=== PATIENT | female | born 1945 | race Caucasian/White ===

== ENCOUNTER 2017-08-29 01:42 | Inpatient (IN) | payer MEDICARE, BC ==
[~2017-08-29] VITALS: Ht 167.6 cm; Wt 59.1 kg
[~2017-08-29 01:42] MED LIST: AMLO5TAB16 PO; ASPI-1071 PO; HYDR-4069 PO; LISI10TA4 PO
[2017-08-29] MEDS ORDERED: pantoprazole 40 MG vial IV ONE (02:00)
[2017-08-29] MEDS ORDERED: normal saline 1000ML IV soln IVB ONE (02:00)
[2017-08-29 02:23] LABS: BASOPHILS % (AUTO) 0 % (0-1); EOSINOPHILS # (AUTO) 0.1 X10'3 (0-0.9); EOSINOPHILS % (AUTO) 0.4 % (0-6); HEMATOCRIT 42.5 % (35.0-45.0); HEMOGLOBIN 14.6 g/dl (12.0-16.0); LYMPHOCYTES # (AUTO) 0.3 X10'3 (1.1-4.8); LYMPHOCYTES % (AUTO) 1.6 % (21-51); MEAN CORPUSCULAR HEMOGLOBIN 31.1 PG (27.0-31.0); MEAN CORPUSCULAR HGB CONC 34.4 % (33.0-36.5); MEAN CORPUSCULAR VOLUME 90.6 FL (78-98); MEAN PLATELET VOLUME 9.8 FL (7.4-10.4); MONOCYTES # (AUTO) 0.5 X10'3 (0-0.9); MONOCYTES % (AUTO) 2.4 % (2-12); NEUTROPHILS # (AUTO) 18.9 X10'3 (1.8-7.7); NEUTROPHILS % (AUTO) 95.6 % (42-75); PLATELET COUNT 199 X10'3 (140-440); RED BLOOD COUNT 4.69 X10'6 (4.20-5.60); RED CELL DISTRIBUTION WIDTH 13.1 % (11.5-14.5); WHITE BLOOD COUNT 19.8 X10'3 (4.5-11.0)
[2017-08-29 02:32] LABS: PARTIAL THROMBOPLASTIN TIME 26 SECONDS (22-32); PROTHROMBIN TIME 10.7 SECONDS (9.0-12.0)
[2017-08-29 02:37] LABS: ALANINE AMINOTRANSFERASE 21 U/L (12-78); ALBUMIN/GLOBULIN RATIO 1.3 (1.1-1.5); ALKALINE PHOSPHATASE 61 IU/L (46-116); ANION GAP 13 (8-16); ASPARTATE AMINO TRANSFERASE 27 U/L (10-37); BILIRUBIN,TOTAL 0.7 MG/DL (0.1-1.0); BLOOD UREA NITROGEN 46 MG/DL (7-18); BUN/CREATININE RATIO 23.5 (6.6-38.0); CALCIUM 10.3 MG/DL (8.5-10.1); CHLORIDE 105 MMOL/L (99-107); CREATININE 1.96 MG/DL (0.40-0.90); GLUCOSE 187 MG/DL (70-104); LIPASE 56 U/L (73-393); POTASSIUM 3.8 MMOL/L (3.5-5.1); SODIUM 142 MMOL/L (135-145); TOTAL CARBON DIOXIDE 23.6 MMOL/L (24-32); TOTAL PROTEIN 7.1 G/DL (6.4-8.2); eGFR 25 ML/MIN
[2017-08-29 02:44] LABS: CLARITY,URINE SLIGHTLY CLOUDY (Clear); GLUCOSE, URINE NEGATIVE (Neg); KETONES,URINE 15 mg/dl (Neg); LEUKOCYTE ESTERASE ,URINE NEGATIVE (Neg); OCCULT BLOOD,URINE NEGATIVE (Neg); PROTEIN,URINE 30 mg/dl (Neg)
[2017-08-29 02:46] LABS: PLATELET ESTIMATE NORMAL; TOTAL CELLS COUNTED 100
[2017-08-29 02:51] LABS: COLOR,URINE DARK YELLOW (Yellow); NITRITES, URINE NEGATIVE (Neg)
[2017-08-29 02:52] LABS: SQUAMOUS EPITHELIAL CELL,UR MODERATE /LPF (FEW); UA COLLECTION TYPE STRAIGHT CATH
[2017-08-29 02:53] LABS: CELLULAR CAST 0-4 /LPF (NEGATIVE); COARSE GRANULAR CAST 0-3 /LPF (NEGATIVE)
[2017-08-29 02:54] LABS: AMORPHOUS URATES 1+; BACTERIA,URINE FEW /HPF (Neg); RBC,URINE 0-2 /HPF (0-2)
[2017-08-29] MEDS ORDERED: CefTRIAXone/D5W-Rocephin 1gm 50 ML IV ONE (03:45)
[2017-08-29] MEDS ORDERED: MIRT15TA10 PO (05:48)
[2017-08-29] MEDS ORDERED: LISI40TA4 PO (05:48)
[2017-08-29] MEDS ORDERED: HYDR25TA4 PO (05:48)
[2017-08-29] MEDS ORDERED: POTA10TA19 PO (05:48)
[2017-08-29] MEDS ORDERED: OLAN5TAB5 PO ×2 (05:48)
[2017-08-29] MEDS ORDERED: AMLO2.5T2 PO (05:48)
[2017-08-29] MEDS ORDERED: HYDROmorphone inj. 0.5 MG/0.5 ML DISP.SYRIN IV PRN (06:10)
[2017-08-29] MEDS ORDERED: acetaminophen 325mg tablet PO PRN (06:10)
[2017-08-29] MEDS ORDERED: ondansetron/PF 4mg/2ml inj IV PRN (06:10)
[2017-08-29] MEDS ORDERED: glucagon, human recombinant 1mg kit SUBCUT PRN (06:15)
[2017-08-29] MEDS ORDERED: dextrose 50%-water 50ml dispensing syringe IV PRN ×2 (06:15)
[2017-08-29] MEDS ORDERED: insulin Lispro (HumaLOG) vial - multi-dose SQ SCH (06:15)
[2017-08-29] MEDS ORDERED: MESSAGE TO PHARMACY PO ONE (06:15)
[2017-08-29] MEDS ORDERED: dextrose ORAL solution 15 GM/59 ML bottle PO PRN ×2 (06:15)
[2017-08-29] MEDS ORDERED: metoprolol tartrate 1mg/ml inj IV PRN (06:20)
[2017-08-29] MEDS: normal saline 1000ml 1,000 ML IV SCH ×2 (06:29→16:52)
[2017-08-29] MEDS: piperacillin/tazo 3.375gm/50ml 50 ML IV SCH ×3 (07:11→22:34)
[2017-08-29 09:06] LABS: HEMOGLOBIN 14.6 g/dl (12.0-16.0); MEAN CORPUSCULAR HGB CONC 34.8 % (33.0-36.5); MEAN PLATELET VOLUME 10.2 FL (7.4-10.4); PLATELET COUNT 196 X10'3 (140-440); RED BLOOD COUNT 4.71 X10'6 (4.20-5.60); RED CELL DISTRIBUTION WIDTH 13.1 % (11.5-14.5); WHITE BLOOD COUNT 19.3 X10'3 (4.5-11.0)
[2017-08-29] MEDS ORDERED: OLANZapine 5mg rapidly disint. tablet PO PRN (15:15)
[2017-08-29] MEDS ORDERED: hydrALAZINE 20mg/ml inj. IV PRN (15:15)
[2017-08-29 16:58] VITALS: BP 162/77
[2017-08-29 20:00] VITALS: BP 181/78
[2017-08-29] MEDS: insulin glargine (Lantus) pen - multi-dose SQ SCH (21:00)
[2017-08-29] MEDS ORDERED: non-formulary drug (Mirtazapine 1 TAB) PO SCH (21:00)
[2017-08-29] MEDS: OLANZapine 2.5MG tablet PO SCH (21:15)
[2017-08-29] MEDS: amLODIPine 2.5mg tablet PO SCH (21:15)
[2017-08-29] MEDS: lactobacillus rhamnosus 10,000 MMU CELLS/CAPSULE PO SCH (21:15)
[2017-08-29] MEDS: mirtazapine 15mg tablet PO SCH (21:15)
[2017-08-30] VITALS: BP 150/85
[2017-08-30] MEDS: piperacillin/tazo 3.375gm/50ml 50 ML IV SCH ×4 (02:06→20:54)
[2017-08-30 05:46] LABS: BASOPHILS % (AUTO) 0.1 % (0-1); EOSINOPHILS % (AUTO) 0 % (0-6); HEMATOCRIT 38.2 % (35.0-45.0); HEMOGLOBIN 13.3 g/dl (12.0-16.0); LYMPHOCYTES # (AUTO) 0.9 X10'3 (1.1-4.8); LYMPHOCYTES % (AUTO) 6.2 % (21-51); MEAN CORPUSCULAR HEMOGLOBIN 31.2 PG (27.0-31.0); MEAN CORPUSCULAR HGB CONC 34.8 % (33.0-36.5); MEAN CORPUSCULAR VOLUME 89.8 FL (78-98); MEAN PLATELET VOLUME 10.4 FL (7.4-10.4); MONOCYTES # (AUTO) 0.6 X10'3 (0-0.9); MONOCYTES % (AUTO) 4.2 % (2-12); NEUTROPHILS # (AUTO) 13.3 X10'3 (1.8-7.7); NEUTROPHILS % (AUTO) 89.5 % (42-75); PLATELET COUNT 176 X10'3 (140-440); RED BLOOD COUNT 4.25 X10'6 (4.20-5.60); RED CELL DISTRIBUTION WIDTH 13.3 % (11.5-14.5); WHITE BLOOD COUNT 14.9 X10'3 (4.5-11.0)
[2017-08-30 06:14] LABS: ALBUMIN 2.7 G/DL (3.4-5.0); ANION GAP 10 (8-16); BLOOD UREA NITROGEN 35 MG/DL (7-18); BUN/CREATININE RATIO 28.2 (6.6-38.0); CALCIUM 8.9 MG/DL (8.5-10.1); CHLORIDE 108 MMOL/L (99-107); CREATININE 1.24 MG/DL (0.40-0.90); GLUCOSE 111 MG/DL (70-104); POTASSIUM 3.1 MMOL/L (3.5-5.1); SODIUM 143 MMOL/L (135-145); TOTAL CARBON DIOXIDE 25.5 MMOL/L (24-32); eGFR 43 ML/MIN
[2017-08-30 07:24] VITALS: BP 144/70
[2017-08-30] MEDS ORDERED: non-formulary drug (Lisinopril* 1 TAB) PO SCH (08:00)
[2017-08-30] MEDS ORDERED: non-formulary drug (Potassium Chloride (Klor-Con) 1 TAB) PO SCH (08:00)
[2017-08-30] MEDS ORDERED: amLODIPine 2.5mg tablet PO SCH (08:00)
[2017-08-30] MEDS: normal saline 1000ml 1,000 ML IV SCH ×2 (08:03→21:46)
[2017-08-30] MEDS: HYDROchlorothiazide 25mg tablet PO SCH (08:04)
[2017-08-30] MEDS: lisinopril 20mg tablet PO SCH (08:04)
[2017-08-30] MEDS: lactobacillus rhamnosus 10,000 MMU CELLS/CAPSULE PO SCH ×2 (08:04→20:54)
[2017-08-30] MEDS: amLODIPine 2.5mg tablet PO SCH (08:05)
[2017-08-30] MEDS: potassium chloride 10mEq ER tablet PO SCH (08:05)
[2017-08-30] MEDS: OLANZapine 2.5MG tablet PO SCH ×2 (08:05→20:54)
[2017-08-30 11:05] VITALS: BP 124/65
[2017-08-30 11:48] LABS: C DIFF ANTIGEN NEGATIVE (NEGATIVE); C DIFF SPECIMEN=DIARRHEA? ACCEPTABLE; C DIFFICILE TOXINS A&B NEGATIVE (Neg)
[2017-08-30] MEDS ORDERED: PEG 3350/Na sulf,bicarb,Cl/KCl oral sol 4 liter bottle PO ONE (18:45)
[2017-08-30 20:00] VITALS: BP 145/63
[2017-08-30] MEDS: mirtazapine 15mg tablet PO SCH (20:54)
[2017-08-30] MEDS: insulin glargine (Lantus) pen - multi-dose SQ SCH (21:00)
[2017-08-31] VITALS (7 sets, daily range): BP systolic 152–192; BP diastolic 65–94
[2017-08-31] MEDS ORDERED: magnesium Cl slow-release 64mg tablet PO PRN (01:25)
[2017-08-31] MEDS ORDERED: magnesium 2GM in 50ml NS 50 ML IV PRN (01:25)
[2017-08-31] MEDS ORDERED: potassium Cl 40MEQ/NS 500ml 500 ML IV PRN ×2 (01:25)
[2017-08-31] MEDS: piperacillin/tazo 3.375gm/50ml 50 ML IV SCH ×4 (01:41→20:49)
[2017-08-31 06:03] LABS: BASOPHILS % (AUTO) 0.1 % (0-1); EOSINOPHILS % (AUTO) 0.3 % (0-6); HEMATOCRIT 35.1 % (35.0-45.0); HEMOGLOBIN 12.1 g/dl (12.0-16.0); MEAN CORPUSCULAR HEMOGLOBIN 31.2 PG (27.0-31.0); MEAN CORPUSCULAR HGB CONC 34.6 % (33.0-36.5); MEAN CORPUSCULAR VOLUME 90.3 FL (78-98); MEAN PLATELET VOLUME 9.8 FL (7.4-10.4); MONOCYTES # (AUTO) 0.5 X10'3 (0-0.9); NEUTROPHILS # (AUTO) 9.8 X10'3 (1.8-7.7); NEUTROPHILS % (AUTO) 86.6 % (42-75); PLATELET COUNT 164 X10'3 (140-440); RED BLOOD COUNT 3.88 X10'6 (4.20-5.60); RED CELL DISTRIBUTION WIDTH 13.5 % (11.5-14.5); WHITE BLOOD COUNT 11.4 X10'3 (4.5-11.0)
[2017-08-31 06:31] LABS: ALBUMIN 2.4 G/DL (3.4-5.0); ANION GAP 10 (8-16); BLOOD UREA NITROGEN 32 MG/DL (7-18); BUN/CREATININE RATIO 29.4 (6.6-38.0); CALCIUM 8.7 MG/DL (8.5-10.1); CHLORIDE 109 MMOL/L (99-107); CREATININE 1.09 MG/DL (0.40-0.90); GLUCOSE 84 MG/DL (70-104); POTASSIUM 3.2 MMOL/L (3.5-5.1); SODIUM 145 MMOL/L (135-145); TOTAL CARBON DIOXIDE 25.6 MMOL/L (24-32); eGFR 50 ML/MIN
[2017-08-31] MEDS: potassium Cl 20 mEq SR tablet PO PRN ×3 (09:08→22:13)
[2017-08-31] MEDS: amLODIPine 2.5mg tablet PO SCH (09:08)
[2017-08-31] MEDS: potassium chloride 10mEq ER tablet PO SCH (09:09)
[2017-08-31] MEDS: lisinopril 20mg tablet PO SCH (09:09)
[2017-08-31] MEDS: lactobacillus rhamnosus 10,000 MMU CELLS/CAPSULE PO SCH ×2 (09:09→20:49)
[2017-08-31] MEDS: OLANZapine 2.5MG tablet PO SCH ×2 (09:10→20:49)
[2017-08-31] MEDS: HYDROchlorothiazide 25mg tablet PO SCH (09:13)
[2017-08-31] MEDS: normal saline 1000ml 1,000 ML IV SCH ×2 (11:27→14:03)
[2017-08-31] MEDS ORDERED: enalaprilat dihydrate 2.5mg/2ml vial IV ONE (16:05)
[2017-08-31] MEDS: mirtazapine 15mg tablet PO SCH (20:50)
[2017-08-31] MEDS: insulin glargine (Lantus) pen - multi-dose SQ SCH (21:00)
[2017-09-01] VITALS (9 sets, daily range): BP systolic 146–193; BP diastolic 66–93
[2017-09-01] MEDS: piperacillin/tazo 3.375gm/50ml 50 ML IV SCH (02:14)
[2017-09-01] MEDS: normal saline 1000ml 1,000 ML IV SCH ×2 (04:00→20:59)
[2017-09-01 05:33] LABS: BASOPHILS % (AUTO) 0.3 % (0-1); EOSINOPHILS % (AUTO) 0.4 % (0-6); HEMATOCRIT 32.5 % (35.0-45.0); HEMOGLOBIN 11.4 g/dl (12.0-16.0); LYMPHOCYTES # (AUTO) 0.8 X10'3 (1.1-4.8); LYMPHOCYTES % (AUTO) 10.7 % (21-51); MEAN CORPUSCULAR HEMOGLOBIN 30.9 PG (27.0-31.0); MEAN CORPUSCULAR HGB CONC 35.1 % (33.0-36.5); MEAN CORPUSCULAR VOLUME 88.1 FL (78-98); MEAN PLATELET VOLUME 9.7 FL (7.4-10.4); MONOCYTES # (AUTO) 0.4 X10'3 (0-0.9); MONOCYTES % (AUTO) 4.7 % (2-12); NEUTROPHILS # (AUTO) 6.4 X10'3 (1.8-7.7); NEUTROPHILS % (AUTO) 83.9 % (42-75); PLATELET COUNT 172 X10'3 (140-440); RED BLOOD COUNT 3.68 X10'6 (4.20-5.60); RED CELL DISTRIBUTION WIDTH 13.4 % (11.5-14.5); WHITE BLOOD COUNT 7.6 X10'3 (4.5-11.0)
[2017-09-01 05:34] LABS: ALBUMIN 2.6 G/DL (3.4-5.0); ANION GAP 13 (8-16); BLOOD UREA NITROGEN 18 MG/DL (7-18); BUN/CREATININE RATIO 20.9 (6.6-38.0); CALCIUM 8.8 MG/DL (8.5-10.1); CHLORIDE 107 MMOL/L (99-107); CREATININE 0.86 MG/DL (0.40-0.90); GLUCOSE 89 MG/DL (70-104); MAGNESIUM 1.8 MG/DL (1.5-2.4); POTASSIUM 3.2 MMOL/L (3.5-5.1); SODIUM 144 MMOL/L (135-145); TOTAL CARBON DIOXIDE 24.4 MMOL/L (24-32); eGFR 65 ML/MIN
[2017-09-01] MEDS ORDERED: fentaNYL/PF 50MCG/1 ML 2ML syringe ONE (07:23)
[2017-09-01] MEDS ORDERED: MIDAZolam 5mg/5ml vial ONE (07:24)
[2017-09-01] MEDS: amLODIPine 2.5mg tablet PO SCH (09:05)
[2017-09-01] MEDS: HYDROchlorothiazide 25mg tablet PO SCH (09:05)
[2017-09-01] MEDS: lisinopril 20mg tablet PO SCH (09:05)
[2017-09-01] MEDS: metroNIDAZOLE-Flagyl 500mg/NS 100 ML IV SCH ×3 (09:05→23:43)
[2017-09-01] MEDS: potassium chloride 10mEq ER tablet PO SCH (09:05)
[2017-09-01] MEDS: OLANZapine 2.5MG tablet PO SCH ×2 (09:05→19:57)
[2017-09-01] MEDS: lactobacillus rhamnosus 10,000 MMU CELLS/CAPSULE PO SCH ×2 (09:05→19:57)
[2017-09-01] MEDS: potassium Cl 20 mEq SR tablet PO PRN ×3 (09:06→19:57)
[2017-09-01 09:12] LABS: C DIFF ANTIGEN NEGATIVE (NEGATIVE); C DIFF SPECIMEN=DIARRHEA? ACCEPTABLE; C DIFFICILE TOXINS A&B NEGATIVE (Neg)
[2017-09-01] MEDS ORDERED: normal saline 1000ml 1,000 ML IV SCH (09:21)
[2017-09-01] MEDS ORDERED: simethicone 40mg/0.6ml oral drops 30ml MC ONE (09:25)
[2017-09-01] MEDS ORDERED: fentaNYL/PF 50MCG/1 ML 2ML syringe IV PRN (09:25)
[2017-09-01] MEDS ORDERED: MIDAZolam 5mg/5ml vial IV PRN (09:25)
[2017-09-01] MEDS: vancomycin 125mg/5ml ORAL solution 5ml UD bottle PO SCH ×3 (10:25→19:57)
[2017-09-01] MEDS: LORazepam 2 mg/ml vial IV PRN (17:25)
[2017-09-01] MEDS: mirtazapine 15mg tablet PO SCH (20:53)
[2017-09-01] MEDS: insulin glargine (Lantus) pen - multi-dose SQ SCH (21:00)
[2017-09-02] VITALS: BP 135/69
[2017-09-02] MEDS: vancomycin 125mg/5ml ORAL solution 5ml UD bottle PO SCH ×4 (01:48→19:52)
[2017-09-02 05:35] LABS: BASOPHILS % (AUTO) 0.5 % (0-1); EOSINOPHILS # (AUTO) 0.1 X10'3 (0-0.9); EOSINOPHILS % (AUTO) 1.9 % (0-6); HEMATOCRIT 32.7 % (35.0-45.0); HEMOGLOBIN 11.1 g/dl (12.0-16.0); LYMPHOCYTES # (AUTO) 1.5 X10'3 (1.1-4.8); LYMPHOCYTES % (AUTO) 30.2 % (21-51); MEAN CORPUSCULAR HEMOGLOBIN 30.5 PG (27.0-31.0); MEAN CORPUSCULAR HGB CONC 33.9 % (33.0-36.5); MEAN PLATELET VOLUME 9.9 FL (7.4-10.4); MONOCYTES # (AUTO) 0.4 X10'3 (0-0.9); MONOCYTES % (AUTO) 7.2 % (2-12); NEUTROPHILS % (AUTO) 60.2 % (42-75); PLATELET COUNT 168 X10'3 (140-440); RED BLOOD COUNT 3.64 X10'6 (4.20-5.60); RED CELL DISTRIBUTION WIDTH 13.2 % (11.5-14.5)
[2017-09-02 06:12] LABS: ALBUMIN 2.4 G/DL (3.4-5.0); ANION GAP 12 (8-16); BLOOD UREA NITROGEN 9 MG/DL (7-18); BUN/CREATININE RATIO 15.3 (6.6-38.0); CALCIUM 8.5 MG/DL (8.5-10.1); CHLORIDE 108 MMOL/L (99-107); CREATININE 0.59 MG/DL (0.40-0.90); GLUCOSE 88 MG/DL (70-104); MAGNESIUM 1.6 MG/DL (1.5-2.4); SODIUM 142 MMOL/L (135-145); TOTAL CARBON DIOXIDE 22.3 MMOL/L (24-32); eGFR > 90 ML/MIN
[2017-09-02 07:08] VITALS: BP 151/92
[2017-09-02] MEDS: metroNIDAZOLE-Flagyl 500mg/NS 100 ML IV SCH ×2 (09:12→15:18)
[2017-09-02] MEDS: lisinopril 20mg tablet PO SCH (09:12)
[2017-09-02] MEDS: HYDROchlorothiazide 25mg tablet PO SCH (09:12)
[2017-09-02] MEDS: OLANZapine 2.5MG tablet PO SCH ×2 (09:12→19:52)
[2017-09-02] MEDS: lactobacillus rhamnosus 10,000 MMU CELLS/CAPSULE PO SCH ×2 (09:12→19:51)
[2017-09-02] MEDS: amLODIPine 2.5mg tablet PO SCH (09:19)
[2017-09-02] MEDS: potassium chloride 10mEq ER tablet PO SCH (09:19)
[2017-09-02 11:55] VITALS: BP 140/68
[2017-09-02] MEDS: normal saline 1000ml 1,000 ML IV SCH (14:13)
[2017-09-02] MEDS: potassium Cl 20 mEq SR tablet PO PRN ×2 (15:51→19:52)
[2017-09-02] MEDS ORDERED: LIDOcaine 1% 30ml vial 5 ML in potassium Cl 40MEQ/NS 500ml 500 ML IV ONE (16:00)
[2017-09-02] MEDS ORDERED: LIDOcaine 1% 30ml vial 5 ML in potassium Cl 40MEQ/NS 500ml 500 ML IV PRN (16:00)
[2017-09-02 19:00] VITALS: BP 158/74
[2017-09-02] MEDS: mirtazapine 15mg tablet PO SCH (20:39)
[2017-09-02] MEDS: insulin glargine (Lantus) pen - multi-dose SQ SCH (21:00)
[2017-09-03] VITALS: BP 168/97
[2017-09-03] MEDS: metroNIDAZOLE-Flagyl 500mg/NS 100 ML IV SCH ×3 (00:01→14:43)
[2017-09-03] MEDS: potassium Cl 20 mEq SR tablet PO PRN (00:04)
[2017-09-03] MEDS: vancomycin 125mg/5ml ORAL solution 5ml UD bottle PO SCH ×3 (01:57→14:43)
[2017-09-03 05:32] LABS: BASOPHILS % (AUTO) 0.5 % (0-1); EOSINOPHILS # (AUTO) 0.1 X10'3 (0-0.9); EOSINOPHILS % (AUTO) 2.3 % (0-6); HEMATOCRIT 34.4 % (35.0-45.0); HEMOGLOBIN 11.9 g/dl (12.0-16.0); LYMPHOCYTES # (AUTO) 1.3 X10'3 (1.1-4.8); LYMPHOCYTES % (AUTO) 26.4 % (21-51); MEAN CORPUSCULAR HEMOGLOBIN 31.1 PG (27.0-31.0); MEAN CORPUSCULAR HGB CONC 34.6 % (33.0-36.5); MEAN CORPUSCULAR VOLUME 89.8 FL (78-98); MEAN PLATELET VOLUME 9.7 FL (7.4-10.4); MONOCYTES # (AUTO) 0.4 X10'3 (0-0.9); MONOCYTES % (AUTO) 8.6 % (2-12); NEUTROPHILS # (AUTO) 3.1 X10'3 (1.8-7.7); NEUTROPHILS % (AUTO) 62.2 % (42-75); PLATELET COUNT 184 X10'3 (140-440); RED BLOOD COUNT 3.83 X10'6 (4.20-5.60)
[2017-09-03] MEDS: normal saline 1000ml 1,000 ML IV SCH (05:35)
[2017-09-03 06:12] LABS: ALBUMIN 2.4 G/DL (3.4-5.0); ANION GAP 10 (8-16); BLOOD UREA NITROGEN 4 MG/DL (7-18); BUN/CREATININE RATIO 6.1 (6.6-38.0); CALCIUM 8.5 MG/DL (8.5-10.1); CHLORIDE 105 MMOL/L (99-107); CREATININE 0.66 MG/DL (0.40-0.90); GLUCOSE 101 MG/DL (70-104); MAGNESIUM 1.5 MG/DL (1.5-2.4); POTASSIUM 3.8 MMOL/L (3.5-5.1); SODIUM 139 MMOL/L (135-145); TOTAL CARBON DIOXIDE 24.4 MMOL/L (24-32); eGFR 89 ML/MIN
[2017-09-03] MEDS: amLODIPine 2.5mg tablet PO SCH (07:10)
[2017-09-03] MEDS: OLANZapine 2.5MG tablet PO SCH ×2 (07:10→20:00)
[2017-09-03] MEDS: potassium chloride 10mEq ER tablet PO SCH (07:10)
[2017-09-03] MEDS: HYDROchlorothiazide 25mg tablet PO SCH (07:11)
[2017-09-03] MEDS: lactobacillus rhamnosus 10,000 MMU CELLS/CAPSULE PO SCH ×2 (07:11→20:00)
[2017-09-03] MEDS: lisinopril 20mg tablet PO SCH (07:11)
[2017-09-03 07:21] VITALS: BP 168/97
[2017-09-03] MEDS ORDERED: HYDROcodone/acetaminophen 5mg/325mg tablet PO PRN (11:15)
[2017-09-03] MEDS: LORazepam 2 mg/ml vial IV PRN (11:25)
[2017-09-03 11:41] VITALS: BP 184/111
[2017-09-03] MEDS: amLODIPine 5mg tablet PO SCH (18:15)
[2017-09-03 20:00] VITALS: BP 164/85
[2017-09-03] MEDS: mirtazapine 15mg tablet PO SCH (21:00)
[2017-09-03] MEDS: insulin glargine (Lantus) pen - multi-dose SQ SCH (21:00)
[2017-09-04] VITALS: BP 160/84
[2017-09-04 06:04] LABS: MAGNESIUM 1.5 MG/DL (1.5-2.4); POTASSIUM 3.6 MMOL/L (3.5-5.1)
[2017-09-04 07:30] VITALS: BP 158/82
[2017-09-04] MEDS: metroNIDAZOLE-Flagyl 500mg/NS 100 ML IV SCH ×2 (08:49)
[2017-09-04] MEDS: amLODIPine 5mg tablet PO SCH (08:50)
[2017-09-04] MEDS: lisinopril 20mg tablet PO SCH (08:50)
[2017-09-04] MEDS: lactobacillus rhamnosus 10,000 MMU CELLS/CAPSULE PO SCH (08:50)
[2017-09-04] MEDS: OLANZapine 2.5MG tablet PO SCH (08:50)
[2017-09-04] MEDS: HYDROchlorothiazide 25mg tablet PO SCH (08:50)
[2017-09-04] MEDS: potassium chloride 10mEq ER tablet PO SCH (08:53)
[2017-09-04 12:30] VITALS: BP 141/92
[2017-09-04] MEDS ORDERED: VANC1VIA21 PO (12:48)
[2017-09-04] MEDS ORDERED: AMLO5TAB16 PO (12:48)
== END 2017-09-04 15:40 | disposition home health service (06) | DRG 871 ==
LOC: ER 01:42 → ED HOLD 06:07 → SUR 3N 16:40
PROVIDERS: ADMIT Family Medicine; ATTEND Family Medicine
PROC: 0DBN8ZX Excision of Sigmoid Colon, Via Natural or Artificial Opening Endoscopic, Diagnostic (ICD-10-PCS; principal; 2017-09-01)
DX: A41.9 Sepsis, unspecified organism (principal); N17.0 Acute kidney failure with tubular necrosis; E43 Unspecified severe protein-calorie malnutrition; A04.72 Enterocolitis due to Clostridium difficile, not specified as recurrent; K92.2 Gastrointestinal hemorrhage, unspecified; G30.9 Alzheimer's disease, unspecified; E11.65 Type 2 diabetes mellitus with hyperglycemia; F02.80 Dementia in other diseases classified elsewhere, unspecified severity, without behavioral disturbance, psychotic disturbance, mood disturbance, and anxiety; N39.0 Urinary tract infection, site not specified; F20.0 Paranoid schizophrenia; D64.9 Anemia, unspecified; E87.6 Hypokalemia; I10 Essential (primary) hypertension; Z79.899 Other long term (current) drug therapy; Z68.21 Body mass index [BMI] 21.0-21.9, adult
CPT/HCPCS: 36415; 45380; 71045; 74176; 80048; 80053; 81001; 82140; 82948; 83036; 83690; 83735; 84132; 84484; 85025; 85027; 85610; 85730; 86885; 86900; 86901; 87045; 87046; 87070; 87088; 87324; 87449; 88305; 89055; 97116; 97161; 97530; A4620; C9113; G0500; J0360; J0696; J1815; J2060; J2250; J2543; J3010; J3480; J3490; J7030